=== PATIENT | male | born 1970 | race Caucasian/White ===

== ENCOUNTER 2020-04-26 17:28 | Inpatient (IN) ==
[2020-04-26] MEDS ORDERED: 0.9 % Sodium Chloride 1,000 ML ONE (17:38)
[2020-04-26] MEDS ORDERED: 0.9 % Sodium Chloride 1,000 ML IVC ONE ×2 (17:43→19:15)
[2020-04-26] MEDS ORDERED: Piperacillin/Tazobactam 3.375 GM in 0.9 % Sodium Chloride Mini Bag 100 ML IVPB ONE (17:44)
[2020-04-26] MEDS ORDERED: Vancomycin 1,250 MG/262.5 ML IV.SOLN IVPB ONE (17:44)
[2020-04-26 18:12] LABS: Basophils # 0.1 K/mcL (0.0-0.2); Basophils % 0.5 %; Eosinophils % 0.3 %; Hematocrit 31.6 % (37.5-50.1); Hemoglobin 10.1 g/dL (12.9-16.9); Immature Granulocytes % 2.4 % (0-4); Lymphocytes # 1.5 K/mcL (0.6-4.6); Mean Corpuscular Hemoglobin 29.6 pg (28.0-33.3); Mean Corpuscular Volume 92.7 fL (83.0-100.0); Mean Platelet Volume 8.6 fL (9.4-12.4); Monocytes # 2.1 K/mcL (0.0-1.3); Monocytes % 14.3 %; Neutrophils # 10.8 K/mcL (1.6-8.9); Platelet Count 586 K/mcL (140-400); Red Blood Count 3.41 M/mcL (4.19-5.50); Segmented Neutrophils % 72.5 %
[2020-04-26 18:18] LABS: INR 1.4; Prothrombin Time 15.6 Seconds (9.4-12.1)
[2020-04-26 18:37] LABS: Alanine Aminotransferase 24 Units/L (7-52); Albumin 3.3 g/dL (3.5-5.7); Albumin/Globulin Ratio 0.7 (1.1-2.2); Alkaline Phosphatase 110 Units/L (34-104); Aspartate Amino Transferase 30 Units/L (13-39); BUN/Creatinine Ratio 12 (6-26); Bilirubin,Direct 0.1 mg/dL (0.0-0.2); Bilirubin,Indirect 0.3 mg/dL (0.0-1.0); Bilirubin,Total 0.4 mg/dL (0.3-1.0); Blood Urea Nitrogen 9 mg/dL (6-20); Calcium 8.9 mg/dL (8.6-10.3); Carbon Dioxide 22 mEq/L (23-29); Chloride 91 mEq/L (98-107); Globulin 4.7 g/dL (2.4-3.5); Glucose 104 mg/dL (70-105); Osmolality,Calculated 263 (280-300); Potassium 3.9 mEq/L (3.5-5.1); Sodium 127 mEq/L (136-145); eGFR For African Americans > 60 (> 60); eGFR For Non-African Americans > 60 (> 60)
[2020-04-26 18:38] LABS: Troponin I < 0.03 ng/mL (< 0.04)
[2020-04-26] MEDS ORDERED: Naloxone 0.4 MG/ML INJ IVP PRN (20:10)
[2020-04-26] MEDS ORDERED: Acetaminophen 325 MG TABLET PO PRN (20:10)
[2020-04-26] MEDS ORDERED: *HR* Promethazine 25 MG/ML VIAL IVP PRN (20:10)
[2020-04-26] MEDS ORDERED: Magic Mouthwash 10 ML UD Cup PO PRN (20:12)
[2020-04-26 20:30] LABS: Adenovirus Not Detected (Not Detect); Bordetella Pertussis Not Detected (Not Detect); Coronavirus 229E Not Detected (Not Detect); Coronavirus HKU1 Not Detected (Not Detect); Coronavirus NL63 Not Detected (Not Detect); Coronavirus OC43 Not Detected (Not Detect); Human Metapneumovirus Not Detected (Not Detect); Human Rhinovirus/Enterovirus Not Detected (Not Detect); Influenza A Subtype 2009 H1 Not Detected (Not Detect); Influenza B Not Detected (Not Detect); Parainfluenza Virus 1 Not Detected (Not Detect); Parainfluenza Virus 2 Not Detected (Not Detect); Parainfluenza Virus 3 Not Detected (Not Detect); Parainfluenza Virus 4 Not Detected (Not Detect); Respiratory Syncytial Virus Not Detected (Not Detect); SARS-CoV-2 Not Detected (Not Detect)
[2020-04-26 20:31] LABS: Chlamydophila pneumoniae Not Detected (Not Detect); Mycoplasma pneumoniae Not Detected (Not Detect)
[2020-04-26] MEDS: *HR* OxyCODONE/APAP 10/325 TABLET PO PRN (20:43)
[2020-04-26] MEDS: 0.9 % Sodium Chloride 1,000 ML IVC SCH (20:44)
[2020-04-26 21:04] LABS: Bilirubin,Urine Negative (Negative); Blood,Urine Negative (Negative); Clarity,Urine Clear (Clear); Color,Urine Light-Yellow (Yellow); Glucose,Urine (UA) Normal (Normal); Ketones,Urine Trace mg/dL (Negative); Leukocyte Esterase,Urine Negative (Negative); Nitrite,Urine Negative (Negative); PH,Urine 6.5 pH Units (5.0-8.0); Protein,Urine Negative (Neg-Trace); Specific Gravity,Urine 1.013 (1.010-1.025); Urobilinogen,Urine Normal (Normal)
[2020-04-26] MEDS: Gabapentin 300 MG CAPSULE PO SCH (22:04)
[2020-04-26] MEDS: QUEtiapine Fumarate 25 MG TABLET PO SCH (22:05)
[2020-04-26] MEDS: Sucralfate 1 GM TABLET PO SCH (22:05)
[2020-04-26] MEDS: Mirtazapine 15 MG TABLET PO SCH (22:05)
[2020-04-26] MEDS: traZODone 50 MG TABLET PO SCH (22:05)
[2020-04-26] MEDS: Nicotine 21 MG PATCH.TD24 TD SCH (22:45)
[2020-04-27] MEDS: Piperacillin/Tazobactam 3.375 GM in 0.9 % Sodium Chloride Mini Bag 100 ML IVPB SCH ×3 (02:31→18:19)
[2020-04-27] MEDS: *HR* OxyCODONE/APAP 10/325 TABLET PO PRN (05:03)
[2020-04-27] MEDS: *HR* Enoxaparin 30 MG/0.3 ML SYRINGE SQ SCH (05:28)
[2020-04-27 06:31] LABS: Basophils # 0.1 K/mcL (0.0-0.2); Basophils % 0.4 %; Eosinophils # 0.2 K/mcL (0.0-0.6); Eosinophils % 1.8 %; Hematocrit 24.3 % (37.5-50.1); Hemoglobin 7.9 g/dL (12.9-16.9); Immature Granulocytes % 1.7 % (0-4); Lymphocytes # 1.2 K/mcL (0.6-4.6); Lymphocytes % 9.7 %; Mean Corpuscular HGB Conc 32.5 g/dL (31.6-35.5); Mean Corpuscular Hemoglobin 30.6 pg (28.0-33.3); Mean Corpuscular Volume 94.2 fL (83.0-100.0); Mean Platelet Volume 8.8 fL (9.4-12.4); Monocytes # 1.7 K/mcL (0.0-1.3); Monocytes % 14.3 %; Neutrophils # 8.7 K/mcL (1.6-8.9); Platelet Count 436 K/mcL (140-400); Red Blood Count 2.58 M/mcL (4.19-5.50); Red Cell Distribution Width 15.1 % (11.5-14.5); Segmented Neutrophils % 72.1 %
[2020-04-27] MEDS: 0.9 % Sodium Chloride 1,000 ML IVC SCH (06:45)
[2020-04-27 06:52] LABS: BUN/Creatinine Ratio 11 (6-26); Blood Urea Nitrogen 7 mg/dL (6-20); Calcium 7.8 mg/dL (8.6-10.3); Carbon Dioxide 19 mEq/L (23-29); Chloride 102 mEq/L (98-107); Glucose 90 mg/dL (70-105); Magnesium 1.3 mg/dL (1.6-2.6); Osmolality,Calculated 270 (280-300); Phosphorous 3.3 mg/dL (2.7-4.5); Potassium 3.5 mEq/L (3.5-5.1); Sodium 131 mEq/L (136-145); eGFR For African Americans > 60 (> 60); eGFR For Non-African Americans > 60 (> 60)
[2020-04-27] MEDS: Nicotine 21 MG PATCH.TD24 TD SCH ×2 (07:25→20:52)
[2020-04-27] MEDS: Gabapentin 300 MG CAPSULE PO SCH ×4 (07:25→20:22)
[2020-04-27] MEDS: Sucralfate 1 GM TABLET PO SCH ×4 (07:25→20:22)
[2020-04-27] MEDS ORDERED: Morphine Sulfate 2 MG/ML SYRINGE IVP ONE (09:46)
[2020-04-27] MEDS: Morphine Sulfate Immed Rel 15 MG TABLET PO PRN (15:34)
[2020-04-27] MEDS ORDERED: Gadolinium Contrast Agent (WT Based) IV PRN (16:19)
[2020-04-27] MEDS ORDERED: Nicotine 21 MG PATCH.TD24 TD SCH (20:15)
[2020-04-27] MEDS: QUEtiapine Fumarate 25 MG TABLET PO SCH (20:22)
[2020-04-27] MEDS: traZODone 50 MG TABLET PO SCH (20:22)
[2020-04-27] MEDS: Mirtazapine 15 MG TABLET PO SCH (20:22)
[2020-04-28] MEDS: Piperacillin/Tazobactam 3.375 GM in 0.9 % Sodium Chloride Mini Bag 100 ML IVPB SCH ×3 (01:34→18:48)
[2020-04-28] MEDS: Morphine Sulfate Immed Rel 15 MG TABLET PO PRN ×2 (01:34→18:47)
[2020-04-28] MEDS: *HR* Enoxaparin 30 MG/0.3 ML SYRINGE SQ SCH (05:45)
[2020-04-28] MEDS: *HR* OxyCODONE Immed Rel 5 MG TABLET PO PRN ×2 (05:45→15:08)
[2020-04-28 06:25] LABS: Hematocrit 26.7 % (37.5-50.1); Hemoglobin 8.5 g/dL (12.9-16.9); Mean Corpuscular HGB Conc 31.8 g/dL (31.6-35.5); Mean Corpuscular Hemoglobin 29.7 pg (28.0-33.3); Mean Corpuscular Volume 93.4 fL (83.0-100.0); Mean Platelet Volume 8.4 fL (9.4-12.4); Platelet Count 481 K/mcL (140-400); Red Blood Count 2.86 M/mcL (4.19-5.50); Red Cell Distribution Width 15.2 % (11.5-14.5); White Blood Count 12.9 K/mcL (4.3-11.1)
[2020-04-28 06:45] LABS: BUN/Creatinine Ratio 8 (6-26); Blood Urea Nitrogen 5 mg/dL (6-20); Carbon Dioxide 24 mEq/L (23-29); Chloride 102 mEq/L (98-107); Glucose 95 mg/dL (70-105); Magnesium 1.4 mg/dL (1.6-2.6); Osmolality,Calculated 275 (280-300); Phosphorous 3.2 mg/dL (2.7-4.5); Potassium 3.5 mEq/L (3.5-5.1); Sodium 134 mEq/L (136-145); eGFR For African Americans > 60 (> 60); eGFR For Non-African Americans > 60 (> 60)
[2020-04-28] MEDS: Vancomycin 1,250 MG/262.5 ML IV.SOLN IVPB SCH ×2 (07:50→18:47)
[2020-04-28] MEDS: Sucralfate 1 GM TABLET PO SCH ×4 (07:50→21:53)
[2020-04-28] MEDS: Gabapentin 300 MG CAPSULE PO SCH ×4 (07:50→20:39)
[2020-04-28] MEDS ORDERED: Morphine Sulfate 2 MG/ML SYRINGE IVP ONE (11:31)
[2020-04-28] MEDS ORDERED: E-Z-HD (BARIUM SULF) SUSPENSION PO ONE (12:36)
[2020-04-28] MEDS ORDERED: E-Z-PAQUE (BARIUM SULF) SUSP 1 BOTTLE PO ONE (12:36)
[2020-04-28] MEDS ORDERED: Simethicone/Sodium Bic/Citr Ac 1 EACH GRAN.EF.PK PO ONE (12:36)
[2020-04-28] MEDS ORDERED: Nitroglycerin 0.4 MG TAB.SUBL SL PRN (14:58)
[2020-04-28] MEDS ORDERED: *HR* OxyCODONE Immed Rel 5 MG TABLET PO PRN (15:19)
[2020-04-28] MEDS: traZODone 50 MG TABLET PO SCH (20:37)
[2020-04-28] MEDS: Mirtazapine 15 MG TABLET PO SCH (20:38)
[2020-04-28] MEDS: Nicotine 21 MG PATCH.TD24 TD SCH (20:39)
[2020-04-28] MEDS: QUEtiapine Fumarate 25 MG TABLET PO SCH (20:39)
[2020-04-29 02:46] LABS: BUN/Creatinine Ratio 10 (6-26); Blood Urea Nitrogen 6 mg/dL (6-20); Carbon Dioxide 22 mEq/L (23-29); Chloride 101 mEq/L (98-107); Glucose 82 mg/dL (70-105); Magnesium 1.6 mg/dL (1.6-2.6); Osmolality,Calculated 273 (280-300); Phosphorous 3.1 mg/dL (2.7-4.5); Potassium 3.5 mEq/L (3.5-5.1); Sodium 133 mEq/L (136-145); eGFR For African Americans > 60 (> 60); eGFR For Non-African Americans > 60 (> 60)
[2020-04-29] MEDS: Morphine Sulfate Immed Rel 15 MG TABLET PO PRN ×3 (03:35→17:26)
[2020-04-29] MEDS: Piperacillin/Tazobactam 3.375 GM in 0.9 % Sodium Chloride Mini Bag 100 ML IVPB SCH (03:36)
[2020-04-29 04:30] LABS: Hematocrit 25.5 % (37.5-50.1); Hemoglobin 8.3 g/dL (12.9-16.9); Mean Corpuscular HGB Conc 32.5 g/dL (31.6-35.5); Mean Corpuscular Hemoglobin 30.4 pg (28.0-33.3); Mean Platelet Volume 8.4 fL (9.4-12.4); Platelet Count 418 K/mcL (140-400); Red Blood Count 2.73 M/mcL (4.19-5.50); Red Cell Distribution Width 15.1 % (11.5-14.5); White Blood Count 13.9 K/mcL (4.3-11.1)
[2020-04-29 04:35] LABS: Mean Corpuscular Volume 93.4 fL (83.0-100.0)
[2020-04-29] MEDS ORDERED: *HR* Enoxaparin 40 MG/0.4 ML SYRINGE SQ SCH (06:00)
[2020-04-29] MEDS: Vancomycin 1,250 MG/262.5 ML IV.SOLN IVPB SCH (06:47)
[2020-04-29] MEDS: Sucralfate 1 GM TABLET PO SCH ×3 (08:34→17:24)
[2020-04-29] MEDS: Gabapentin 300 MG CAPSULE PO SCH ×3 (08:34→17:24)
[2020-04-29 11:00] VITALS: BP 108/68
[2020-04-29] MEDS ORDERED: 0.9 % Sodium Chloride 500 ML IVC SCH (11:00)
[2020-04-29] MEDS ORDERED: Piperacillin/Tazobactam 3.375 GM in 0.9 % Sodium Chloride Mini Bag 100 ML IVPB SCH (14:00)
[2020-04-29] MEDS ORDERED: Lidocaine -MPF 2% 5 ML VIAL SQ ONE (18:13)
[2020-04-29] MEDS ORDERED: *HR* Propofol 200 MG/20 ML VIAL IVP ONE (18:13)
== END 2020-04-29 18:14 | disposition home or self-care (01) | DRG 369 ==
LOC: 3ANU 17:28 → EMEROOARM 17:28 → SUATTDRO 20:47 → 3ANU 21:08
PROVIDERS: ADMIT Family Medicine; ATTEND Internal Medicine

== ENCOUNTER 2020-06-01 13:50 | Inpatient (IN) ==
[2020-06-01] MEDS ORDERED: 0.9 % Sodium Chloride 1,000 ML IVC ONE ×2 (14:16→15:32)
[2020-06-01] MEDS ORDERED: *HR* HYDROmorphone (PF) 1 MG/ML SYRINGE IVP ONE (14:30)
[2020-06-01 15:02] LABS: Basophils # 0.1 K/mcL (0.0-0.2); Basophils % 0.4 %; Eosinophils # 0.1 K/mcL (0.0-0.6); Eosinophils % 0.4 %; Hematocrit 28.9 % (37.5-50.1); Hemoglobin 9.1 g/dL (12.9-16.9); Immature Granulocytes % 0.8 % (0-4); Lymphocytes % 11.4 %; Mean Corpuscular HGB Conc 31.5 g/dL (31.6-35.5); Mean Corpuscular Hemoglobin 29.4 pg (28.0-33.3); Mean Corpuscular Volume 93.2 fL (83.0-100.0); Mean Platelet Volume 8.5 fL (9.4-12.4); Monocytes # 1.2 K/mcL (0.0-1.3); Monocytes % 6.9 %; Neutrophils # 13.7 K/mcL (1.6-8.9); Platelet Count 566 K/mcL (140-400); Red Cell Distribution Width 17.1 % (11.5-14.5); Segmented Neutrophils % 80.1 %; White Blood Count 17.1 K/mcL (4.3-11.1)
[2020-06-01 15:06] LABS: INR 1.2; Prothrombin Time 13.8 Seconds (9.4-12.1)
[2020-06-01 15:24] LABS: Alanine Aminotransferase 13 Units/L (7-52); Albumin 2.7 g/dL (3.5-5.7); Albumin/Globulin Ratio 0.6 (1.1-2.2); Alkaline Phosphatase 150 Units/L (34-104); Aspartate Amino Transferase 25 Units/L (13-39); BUN/Creatinine Ratio 11 (6-26); Bilirubin,Direct 0.1 mg/dL (0.0-0.2); Bilirubin,Indirect 0.3 mg/dL (0.0-1.0); Bilirubin,Total 0.4 mg/dL (0.3-1.0); Blood Urea Nitrogen 8 mg/dL (6-20); Calcium 8.2 mg/dL (8.6-10.3); Carbon Dioxide 20 mEq/L (23-29); Chloride 98 mEq/L (98-107); Globulin 4.7 g/dL (2.4-3.5); Glucose 92 mg/dL (70-105); Osmolality,Calculated 266 (280-300); Potassium 3.6 mEq/L (3.5-5.1); Sodium 129 mEq/L (136-145); Total Protein 7.4 g/dL (6.4-8.9); Troponin I < 0.03 ng/mL (< 0.04); eGFR For African Americans > 60 (> 60); eGFR For Non-African Americans > 60 (> 60)
[2020-06-01 17:15] LABS: Amorphous Sediment,Urine Few per hpf (None-Few); Bacteria,Urine Few per hpf (None-Few); Bilirubin,Urine Negative (Negative); Blood,Urine Negative (Negative); Clarity,Urine Turbid (Clear); Color,Urine Yellow (Yellow); Glucose,Urine (UA) Normal (Normal); Hyaline Casts,Urine Few per lpf (None Seen); Ketones,Urine Negative (Negative); Leukocyte Esterase,Urine Negative (Negative); Mucus,Urine Few per lpf (None-Few); Nitrite,Urine Negative (Negative); Protein,Urine Trace mg/dL (Neg-Trace); RBC,Urine 0-3 per hpf (0-3); Specific Gravity,Urine 1.013 (1.010-1.025); Urobilinogen,Urine Normal (Normal); WBC,Urine 0-3 per hpf (0-3)
[2020-06-01] MEDS ORDERED: Naloxone 0.4 MG/ML INJ IVP PRN (17:41)
[2020-06-01] MEDS ORDERED: *HR* Heparin 5,000 UNIT/ML VIAL IVP PRN ×2 (17:43)
[2020-06-01] MEDS ORDERED: *HR* Heparin 5,000 UNIT/ML VIAL IVP ONE (17:43)
[2020-06-01] MEDS ORDERED: Heparin 25,000UNIT/250ML 1/2NS 25,000 UNIT/250 ML IV.SOLN IVC SCH (17:45)
[2020-06-01] MEDS ORDERED: Magic Mouthwash 10 ML UD Cup PO PRN (17:51)
[2020-06-01] MEDS ORDERED: Acetaminophen 325 MG TABLET PO PRN (17:51)
[2020-06-01] MEDS ORDERED: *HR* Heparin 5,000 UNIT/ML VIAL SQ SCH (18:30)
[2020-06-01] MEDS ORDERED: Vancomycin 1,250 MG/262.5 ML IV.SOLN IVPB SCH ×2 (19:15)
[2020-06-01 20:14] LABS: Hematocrit 25.3 % (37.5-50.1); Mean Corpuscular HGB Conc 31.6 g/dL (31.6-35.5); Mean Corpuscular Hemoglobin 28.6 pg (28.0-33.3); Mean Corpuscular Volume 90.4 fL (83.0-100.0); Mean Platelet Volume 8.4 fL (9.4-12.4); Platelet Count 537 K/mcL (140-400); Red Cell Distribution Width 16.8 % (11.5-14.5); White Blood Count 13.5 K/mcL (4.3-11.1)
[2020-06-01 20:22] LABS: Heparin anti-factor XA UFH < 0.04 IU/mL (0.30-0.70); INR 1.2; Prothrombin Time 13.4 Seconds (9.4-12.1)
[2020-06-01] MEDS: Piperacillin/Tazobactam 3.375 GM in 0.9 % Sodium Chloride Mini Bag 100 ML IVPB SCH ×2 (21:17→21:47)
[2020-06-01] MEDS: 0.9 % Sodium Chloride 1,000 ML IVC SCH (21:43)
[2020-06-01] MEDS: Gabapentin 300 MG CAPSULE PO SCH (21:50)
[2020-06-01] MEDS: Mirtazapine 15 MG TABLET PO SCH (21:50)
[2020-06-01] MEDS: QUEtiapine Fumarate 25 MG TABLET PO SCH (21:51)
[2020-06-01] MEDS: traZODone 50 MG TABLET PO SCH (21:52)
[2020-06-02 04:41] LABS: Basophils # 0.1 K/mcL (0.0-0.2); Basophils % 0.3 %; Eosinophils # 0.1 K/mcL (0.0-0.6); Eosinophils % 0.4 %; Hematocrit 23.8 % (37.5-50.1); Hemoglobin 7.5 g/dL (12.9-16.9); Immature Granulocytes % 0.7 % (0-4); Lymphocytes # 1.5 K/mcL (0.6-4.6); Lymphocytes % 10.4 %; Mean Corpuscular HGB Conc 31.5 g/dL (31.6-35.5); Mean Corpuscular Hemoglobin 29.1 pg (28.0-33.3); Mean Corpuscular Volume 92.2 fL (83.0-100.0); Mean Platelet Volume 8.4 fL (9.4-12.4); Monocytes % 7.1 %; Neutrophils # 11.9 K/mcL (1.6-8.9); Platelet Count 532 K/mcL (140-400); Red Blood Count 2.58 M/mcL (4.19-5.50); Red Cell Distribution Width 17.1 % (11.5-14.5); Segmented Neutrophils % 81.1 %; White Blood Count 14.7 K/mcL (4.3-11.1)
[2020-06-02 04:48] LABS: BUN/Creatinine Ratio 10 (6-26); Blood Urea Nitrogen 7 mg/dL (6-20); Calcium 7.4 mg/dL (8.6-10.3); Carbon Dioxide 22 mEq/L (23-29); Chloride 103 mEq/L (98-107); Glucose 88 mg/dL (70-105); Magnesium 1.7 mg/dL (1.6-2.6); Osmolality,Calculated 271 (280-300); Potassium 3.3 mEq/L (3.5-5.1); Sodium 132 mEq/L (136-145); eGFR For African Americans > 60 (> 60); eGFR For Non-African Americans > 60 (> 60)
[2020-06-02] MEDS: 0.9 % Sodium Chloride 1,000 ML IVC SCH (06:49)
[2020-06-02] MEDS ORDERED: Potassium Chloride 20 MEQ, Lidocaine 1% 2 ML in 0.9 % Sodium Chloride 250 ML IVPB ONE (07:40)
[2020-06-02] MEDS: Gabapentin 300 MG CAPSULE PO SCH ×4 (08:47→20:49)
[2020-06-02] MEDS: Nicotine 21 MG PATCH.TD24 TD SCH (08:47)
[2020-06-02] MEDS: Piperacillin/Tazobactam 3.375 GM in 0.9 % Sodium Chloride Mini Bag 100 ML IVPB SCH ×3 (08:48→23:39)
[2020-06-02] MEDS: Mirtazapine 15 MG TABLET PO SCH (20:50)
[2020-06-02] MEDS: traZODone 50 MG TABLET PO SCH (20:50)
[2020-06-02] MEDS: QUEtiapine Fumarate 25 MG TABLET PO SCH (20:50)
[2020-06-03] MEDS: Piperacillin/Tazobactam 3.375 GM in 0.9 % Sodium Chloride Mini Bag 100 ML IVPB SCH ×2 (07:20→15:51)
[2020-06-03] MEDS: Nicotine 21 MG PATCH.TD24 TD SCH (08:42)
[2020-06-03] MEDS: Gabapentin 300 MG CAPSULE PO SCH ×4 (08:42→22:59)
[2020-06-03 10:23] LABS: Basophils # 0.1 K/mcL (0.0-0.2); Basophils % 0.4 %; Eosinophils # 0.1 K/mcL (0.0-0.6); Eosinophils % 0.3 %; Hematocrit 24.5 % (37.5-50.1); Hemoglobin 7.8 g/dL (12.9-16.9); Immature Granulocytes % 0.7 % (0-4); Lymphocytes # 1.4 K/mcL (0.6-4.6); Lymphocytes % 8.2 %; Mean Corpuscular HGB Conc 31.8 g/dL (31.6-35.5); Mean Corpuscular Hemoglobin 28.8 pg (28.0-33.3); Mean Corpuscular Volume 90.4 fL (83.0-100.0); Mean Platelet Volume 8.1 fL (9.4-12.4); Monocytes # 1.2 K/mcL (0.0-1.3); Monocytes % 6.9 %; Neutrophils # 13.9 K/mcL (1.6-8.9); Platelet Count 543 K/mcL (140-400); Red Blood Count 2.71 M/mcL (4.19-5.50); Red Cell Distribution Width 17.2 % (11.5-14.5); Segmented Neutrophils % 83.5 %; White Blood Count 16.6 K/mcL (4.3-11.1)
[2020-06-03 10:44] LABS: BUN/Creatinine Ratio 9 (6-26); Blood Urea Nitrogen 5 mg/dL (6-20); Calcium 7.5 mg/dL (8.6-10.3); Carbon Dioxide 21 mEq/L (23-29); Chloride 102 mEq/L (98-107); Glucose 77 mg/dL (70-105); Magnesium 1.5 mg/dL (1.6-2.6); Osmolality,Calculated 266 (280-300); Phosphorous 2.9 mg/dL (2.7-4.5); Potassium 3.4 mEq/L (3.5-5.1); Sodium 130 mEq/L (136-145); Vancomycin,Trough 15 mcg/mL (5-10); eGFR For African Americans > 60 (> 60); eGFR For Non-African Americans > 60 (> 60)
[2020-06-03] MEDS ORDERED: Potassium Chloride Elixir 20 MEQ/15 ML UDC PO SCH (12:45)
[2020-06-03] MEDS ORDERED: *HR* FentaNYL (PF) 100 MCG/2 ML VIAL ONE (15:55)
[2020-06-03] MEDS ORDERED: *HR* Propofol 200 MG/20 ML VIAL IVP ONE (15:56)
[2020-06-03] MEDS ORDERED: *HR* Midazolam HCl 2 MG/2 ML VIAL ONE (15:56)
[2020-06-03] MEDS ORDERED: Ondansetron 4 MG/2 ML VIAL IVP PRN (16:22)
[2020-06-03] MEDS ORDERED: *HR* OxyCODONE Immed Rel 5 MG TABLET PO PRN (16:22)
[2020-06-03] MEDS ORDERED: *HR* Labetalol 20 MG/4 ML SYRINGE IVP PRN (16:22)
[2020-06-03] MEDS ORDERED: *HR* HYDROmorphone (PF) 1 MG/ML SYRINGE IVP PRN (16:22)
[2020-06-03] MEDS ORDERED: Neostigmine Methylsulfate 3 MG/3 ML SYRINGE ONE (16:39)
[2020-06-03] MEDS ORDERED: ceFAZolin 1,000 MG, Sodium Chloride IRRigation 1,000 ML IR ONE (16:40)
[2020-06-03] MEDS ORDERED: Dexamethasone 4 MG/ML VIAL ONE (17:22)
[2020-06-03] MEDS ORDERED: Ropivacaine/PF 0.5% 30 ML VIAL ONE (17:23)
[2020-06-03] MEDS ORDERED: *HR* Succinylcholine 200 MG/10 ML VIAL IVP ONE (17:57)
[2020-06-03] MEDS ORDERED: *HR* Etomidate 40 MG/20 ML VIAL IVP ONE (17:58)
[2020-06-03] MEDS ORDERED: Lidocaine -MPF 2% 2 ML VIAL ONE (17:59)
[2020-06-03] MEDS ORDERED: *HR* Phenylephrine 10 MG/ML VIAL ONE (18:15)
[2020-06-03] MEDS ORDERED: *HR* HYDROMORPHONE 2 MG/ML VIAL ONE (18:27)
[2020-06-03] MEDS ORDERED: Ondansetron 4 MG/2 ML VIAL ONE (19:30)
[2020-06-03] MEDS ORDERED: Magic Mouthwash 10 ML UD Cup PO PRN (20:56)
[2020-06-03] MEDS ORDERED: Naloxone 0.4 MG/ML INJ IVP PRN (20:56)
[2020-06-03] MEDS ORDERED: Acetaminophen 325 MG TABLET PO PRN (20:56)
[2020-06-03] MEDS ORDERED: 0.9 % Sodium Chloride 1,000 ML IVC SCH (20:56)
[2020-06-03] MEDS ORDERED: 0.9 % Sodium Chloride 500 ML IVC ONE (22:23)
[2020-06-03] MEDS: Mirtazapine 15 MG TABLET PO SCH (22:59)
[2020-06-03] MEDS: QUEtiapine Fumarate 25 MG TABLET PO SCH (22:59)
[2020-06-03] MEDS: traZODone 50 MG TABLET PO SCH (22:59)
[2020-06-03 23:16] LABS: Hematocrit 24.8 % (37.5-50.1); Hemoglobin 7.8 g/dL (12.9-16.9)
[2020-06-04] MEDS: Piperacillin/Tazobactam 3.375 GM in 0.9 % Sodium Chloride Mini Bag 100 ML IVPB SCH ×3 (00:22→15:41)
[2020-06-04 03:48] LABS: Basophils % 0.2 %; Hematocrit 23.6 % (37.5-50.1); Hemoglobin 7.5 g/dL (12.9-16.9); Lymphocytes # 1.1 K/mcL (0.6-4.6); Lymphocytes % 6.4 %; Mean Corpuscular HGB Conc 31.8 g/dL (31.6-35.5); Mean Corpuscular Hemoglobin 29.2 pg (28.0-33.3); Mean Corpuscular Volume 91.8 fL (83.0-100.0); Mean Platelet Volume 8.4 fL (9.4-12.4); Monocytes # 0.7 K/mcL (0.0-1.3); Monocytes % 3.7 %; Neutrophils # 15.5 K/mcL (1.6-8.9); Platelet Count 485 K/mcL (140-400); Red Blood Count 2.57 M/mcL (4.19-5.50); Red Cell Distribution Width 17.4 % (11.5-14.5); Segmented Neutrophils % 88.7 %; White Blood Count 17.5 K/mcL (4.3-11.1)
[2020-06-04 04:07] LABS: BUN/Creatinine Ratio 7 (6-26); Blood Urea Nitrogen 4 mg/dL (6-20); Calcium 7.1 mg/dL (8.6-10.3); Carbon Dioxide 22 mEq/L (23-29); Chloride 101 mEq/L (98-107); Glucose 105 mg/dL (70-105); Magnesium 1.5 mg/dL (1.6-2.6); Osmolality,Calculated 265 (280-300); Potassium 3.8 mEq/L (3.5-5.1); Sodium 129 mEq/L (136-145); eGFR For African Americans > 60 (> 60); eGFR For Non-African Americans > 60 (> 60)
[2020-06-04] MEDS: 0.9 % Sodium Chloride 1,000 ML IVC SCH ×2 (08:23→17:00)
[2020-06-04] MEDS: Gabapentin 300 MG CAPSULE PO SCH ×4 (08:24→20:51)
[2020-06-04] MEDS: Nicotine 21 MG PATCH.TD24 TD SCH (08:41)
[2020-06-04] MEDS: Sucralfate 1 GM TABLET PO SCH ×3 (13:09→20:51)
[2020-06-04] MEDS: Mirtazapine 15 MG TABLET PO SCH (20:52)
[2020-06-04] MEDS: traZODone 50 MG TABLET PO SCH (20:52)
[2020-06-04] MEDS: QUEtiapine Fumarate 25 MG TABLET PO SCH (20:53)
[2020-06-05] MEDS: Piperacillin/Tazobactam 3.375 GM in 0.9 % Sodium Chloride Mini Bag 100 ML IVPB SCH (00:47)
[2020-06-05 05:30] LABS: Basophils # 0.1 K/mcL (0.0-0.2); Basophils % 0.5 %; Eosinophils # 0.1 K/mcL (0.0-0.6); Eosinophils % 0.5 %; Immature Granulocytes % 0.6 % (0-4); Lymphocytes # 1.3 K/mcL (0.6-4.6); Lymphocytes % 11.5 %; Mean Corpuscular HGB Conc 31.8 g/dL (31.6-35.5); Mean Corpuscular Hemoglobin 29.5 pg (28.0-33.3); Mean Corpuscular Volume 92.8 fL (83.0-100.0); Mean Platelet Volume 8.6 fL (9.4-12.4); Monocytes # 0.9 K/mcL (0.0-1.3); Monocytes % 8.1 %; Neutrophils # 8.7 K/mcL (1.6-8.9); Platelet Count 513 K/mcL (140-400); Red Blood Count 2.37 M/mcL (4.19-5.50); Red Cell Distribution Width 17.8 % (11.5-14.5); Segmented Neutrophils % 78.8 %
[2020-06-05 05:43] LABS: BUN/Creatinine Ratio 6 (6-26); Blood Urea Nitrogen 5 mg/dL (6-20); Calcium 7.1 mg/dL (8.6-10.3); Carbon Dioxide 19 mEq/L (23-29); Chloride 106 mEq/L (98-107); Glucose 106 mg/dL (70-105); Osmolality,Calculated 274 (280-300); Phosphorous 3.2 mg/dL (2.7-4.5); Potassium 3.1 mEq/L (3.5-5.1); Sodium 133 mEq/L (136-145); eGFR For African Americans > 60 (> 60); eGFR For Non-African Americans > 60 (> 60)
[2020-06-05] MEDS: Sucralfate 1 GM TABLET PO SCH (07:25)
[2020-06-05] MEDS: Nicotine 21 MG PATCH.TD24 TD SCH (07:26)
[2020-06-05] MEDS: Gabapentin 300 MG CAPSULE PO SCH (07:26)
[2020-06-05] MEDS ORDERED: Potassium Chloride Elixir 20 MEQ/15 ML UDC PO ONE (07:27)
[2020-06-05] MEDS ORDERED: Ferrous Sulfate Oral Soln 300 MG/5 ML UDC PO SCH (09:00)
[2020-06-05] MEDS ORDERED: 0.9 % Sodium Chloride 250 ML IVC SCH (09:30)
[2020-06-05 12:09] VITALS: BP 111/79
== END 2020-06-05 12:20 | disposition home or self-care (01) | DRG 853 ==
LOC: EMEROOARM 13:50 → 2NNU 13:50 → SUATTDRO 20:11
PROVIDERS: ADMIT Internal Medicine; ATTEND Internal Medicine